=== PATIENT | female | born 1980 | race Caucasian/White ===

== ENCOUNTER 2024-05-16 13:58 | Observation (INO) ==
[2024-05-16 14:23] LABS: ABS Basophils 0.1 10^3/uL (0.0-0.1); ABS Eosinophils 0.2 10^3/uL (0.0-0.5); ABS Lymphocytes 1.9 10^3/uL (1.0-4.8); ABS Monocytes 0.7 10^3/uL (0.0-0.9); ABS Neutrophils 5.8 10^3/uL (1.5-7.6); Hematocrit 43.4 % (35-45); Hemoglobin 14.5 g/dL (11.5-14.3); Mean Corpuscular Hemoglobin 31.1 pg (27-33); Mean Corpuscular Hgb Conc 33.4 g/dL (31-36); Mean Corpuscular Volume 93.2 fL (80-97); Mean Platelet Volume 9.8 fL (7.5-11.2); Platelet Count 300 10^3/uL (150-450); Red Blood Count 4.66 10^6/uL (3.63-4.92); White Blood Count 8.7 10^3/uL (3.8-11.8)
[2024-05-16 14:31] LABS: Activated Partial Thrombo Time 29.5 seconds (26.0-38.0)
[2024-05-16 14:42] LABS: ALT 13 U/L (7-52); AST 18 U/L (13-39); Albumin 4.9 g/dL (3.2-5.2); Alkaline Phosphatase 35 U/L (35-149); Anion Gap 7 mmol/L (2-16); Blood Urea Nitrogen 15 mg/dL (6-24); CO2 Carbon Dioxide 27 mmol/L (22-32); Calcium 9.8 mg/dL (8.6-10.3); Chloride 102 mmol/L (101-111); Cholesterol 182 mg/dL; Creatinine, Serum 0.67 mg/dL (0.51-0.95); Direct Bilirubin 0.1 mg/dL (0.03-0.18); Globulin 2.5 g/dL (2-4); Glucose 104 mg/dL (70-100); HDL Cholesterol 80.2 mg/dL; Indirect Bilirubin 0.3 mg/dL (0.3-1.0); LDL Cholesterol 79 mg/dL; Sodium 136 mmol/L (135-145); Total Bilirubin 0.4 mg/dL (0.2-1.0); Total Protein 7.4 g/dL (6.4-8.9); Triglycerides 114 mg/dL; eGFR CKD-EPI 111.1 (>60)
[2024-05-16 17:07] LABS: Urine Appearance Clear; Urine Bilirubin Negative (Negative); Urine Blood Negative (Negative); Urine Color Light-Yellow; Urine Glucose Negative (Negative); Urine Ketones 1+ (Negative); Urine Nitrite Negative (Negative); Urine Protein Trace (Negative); Urine Specific Gravity >1.050 (1.002-1.030); Urine Urobilinogen Negative (Negative)
[2024-05-16 17:59] LABS: % Iron Saturation 24 % (15-55); .Transferrin 297 mg/dL (203-362); Iron 98 ug/dL (50-212); Magnesium 2.2 mg/dL (1.9-2.7); Total Iron Binding Capacity 416 mcg/dL (250-450); Unsaturated Iron Binding 318 ug/dL
[2024-05-16 18:25] LABS: Folate > 20.00 ng/mL (5.90-24.80)
[2024-05-16 18:26] LABS: Vitamin B12 1039 pg/mL (180-914)
[2024-05-16] MEDS ORDERED: Sulfur Hexaflouride MICROSPHR 25 MG VIAL IV PRN (18:38)
[2024-05-16] MEDS: Gadoteridol (CONTRAST) 279.3 MG/ML 10 ML IV ONE (22:51)
[2024-05-17 17:59] VITALS: BP 105/58
[2024-05-19 20:44] LABS: Anaplasma phagocytophilum Negative (Negative); B. miyamotoi PCR, B Negative (Negative); Babesia divergens/MO-1 Negative (Negative); Babesia ducani Negative (Negative); Ehrlichia chaffeensis Negative (Negative); Ehrlichia ewingii/canis Negative (Negative); Ehrlichia muris eauclairensis Negative (Negative)
== END 2024-05-17 19:51 | disposition home or self-care (01) ==
LOC: ED 13:58 → EDHOLD 13:58 → SUATTDRO 17:17 → MEDTELE 19:25
PROVIDERS: ADMIT Hospitalist; ATTEND Hospitalist